=== PATIENT | male | born 1970 | race Caucasian/White ===

== ENCOUNTER 2025-03-06 15:22 | Outpatient (CLI) | payer MEDICAID, SELFPAY ==
--- NOTE | 2025-03-06 15:38 | MR_ITS ---
PROCEDURE INFORMATION: Exam: MR Lumbar Spine Without and With Contrast Exam date and time: 03/06/2025 3:41 PM Age: 54 years old Clinical indication: Prior surgery; Surgery date: 6+ months; Surgery type: Patient states he had his spinal canal cleaned out due to a pinched nerve ; Chronic low back pain, nki TECHNIQUE: Imaging protocol: Magnetic resonance imaging of the lumbar spine without and with contrast. Contrast material: PROHANCE; Contrast volume: 17 ml; Contrast route: IV; COMPARISON: No relevant prior studies available. FINDINGS: Bones/joints: Vertebral body heights and marrow signal are within normal limits. The patient has undergone laminectomy from L2-L4. Spondylosis is noted with prominent disc bulging, facet arthropathy and ligamentous thickening causing significant canal narrowing at multiple levels, probable underlying congenital stenosis due to short vertebral pedicles. Spinal cord: Visualized cord, conus medullaris and cauda equina are unremarkable without compression. L1-L2: At L1-L2 there is disc bulging with a central annular high signal intensity zone, sarcoid arthropathy and mild ligament thickening. There is [id number] canal narrowing, neural foraminal stenosis. L2-L3: At L2-L3 there is disc bulging with facet arthropathy. There is moderate to severe canal narrowing with crowding of nerve roots, arch to severe neural foraminal stenosis, worse on the right. L3-L4: At L3-L4 there is disc bulging with superimposed central protrusion, facet arthropathy. There is moderate to severe canal narrowing with crowding of nerve roots, severe neural foraminal stenosis. L4-L5: At L4-L5 there is disc bulging with superimposed central protrusion and annular high signal intensity zone and facet arthropathy causing severe canal narrowing with pinching of nerve roots. There is severe neural foraminal stenosis due to uncovertebral spurring, disc bulge and protrusion and facet arthropathy. L5-S1: At L5-S1 there is no significant disc disease, facet arthropathy but no significant neural foraminal stenosis, there is congenital narrowing of the canal around the tapering thecal sac. Soft tissues: Patchy enhancement along the midline posterior paraspinal soft tissues including within the laminectomy bed and posterior lumbar canal likely represents postsurgical scarring. 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
[2025-03-06] MEDS: GADOTERIDOL INJ 20ML SYRINGE 17 ML IV (16:02)
== END 2025-03-06 23:59 | disposition home or self-care (01) ==
LOC: RAD 15:24
PROVIDERS: PCP Family Medicine; Visit Provider Specialist/Technologist Athletic Trainer
DX: M47.816 Spondylosis without myelopathy or radiculopathy, lumbar region (principal); M48.061 Spinal stenosis, lumbar region without neurogenic claudication; R93.7 Abnormal findings on diagnostic imaging of other parts of musculoskeletal system; Z98.890 Other specified postprocedural states
CPT/HCPCS: 72158; A9576